=== PATIENT | female | born 1980 | race Caucasian/White ===

== ENCOUNTER 2020-06-30 17:58 | Emergency (ER) | payer OTHER ==
[~2020-06-30] VITALS: Ht 172.7 cm; Wt 58.6 kg
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
[2020-06-30] MEDS ORDERED: IV RINGERS SOLUTION,LACTATED 1,000 ML IV SCH (18:36)
[2020-06-30] MEDS ORDERED: MORPHINE SULFATE 10 MG/ML SYRINGE. SQ ONE (18:45)
[2020-06-30] MEDS ORDERED: PROCHLORPERAZINE 10 MG/2 ML VIAL. IV ONE (18:45)
[2020-06-30] MEDS ORDERED: diphenhydrAMINE 50 MG/ML VIAL IV ONE (18:45)
[2020-06-30 19:25] LABS: BASO # 0.1 x10^3/uL (0.0-0.2); BASO % 1 % (0-3); EOS # 0.1 x10^3/uL (0.0-0.7); EOS % 2 % (0-3); HEMATOCRIT 41.1 % (36.0-47.0); HEMOGLOBIN 13.9 g/dL (12.0-15.5); LYMPH # 2.4 x10^3/uL (1.0-4.8); LYMPH % 41 % (24-48); MEAN CORPUSCULAR HEMOGLOBIN 31 pg (25-35); MEAN CORPUSCULAR HGB CONC 34 g/dL (31-37); MEAN CORPUSCULAR VOLUME 92 fL (79-100); MONO # 0.4 x10^3/uL (0.0-1.1); MONO % 6 % (0-9); NEUT # 2.9 x10^3uL (1.8-7.7); NEUT % 49 % (31-73); PLATELET COUNT 255 x10^3/uL (140-400); RED BLOOD COUNT 4.49 x10^6/uL (3.50-5.40); RED CELL DISTRIBUTION WIDTH 12.5 % (11.5-14.5); WHITE BLOOD COUNT 5.8 x10^3/uL (4.0-11.0)
[2020-06-30 19:30] LABS: BACTERIA,URINE FEW /HPF (0-FEW); BILIRUBIN,URINE NEG (NEG); CLARITY,URINE TURBID; COLOR,URINE YELLOW; GLUCOSE,URINE NEG (NEG); NITRITE,URINE NEG (NEG); RBC,URINE RARE /HPF (0-2); SQUAMOUS EPITHELIAL CELL,UR MOD /LPF; WBC,URINE OCC /HPF (0-4)
[2020-06-30 19:31] LABS: AMORPHOUS SEDIMENT,UR PRESENT /HPF
[2020-06-30 20:11] LABS: AMPHETAMINE/METHAMPHETAMINE NEG (NEG); BARBITURATES NEG (NEG); BENZODIAZEPINES NEG (NEG); CANNABINOIDS NEG (NEG); COCAINE NEG (NEG); METHADONE NEG (NEG); OPIATES NEG (NEG); PHENCYCLIDINE NEG (NEG)
[2020-06-30 20:11] LABS: ANION GAP 10 (6-14); BLOOD UREA NITROGEN 12 mg/dL (7-20); CALCIUM 8.7 mg/dL (8.5-10.1); CARBON DIOXIDE 22 mmol/L (21-32); CHLORIDE 109 mmol/L (98-107); CREATININE 0.7 mg/dL (0.6-1.0); GFR 93.2; GLUCOSE 95 mg/dL (70-99); POTASSIUM 3.9 mmol/L (3.5-5.1); SODIUM 141 mmol/L (136-145)
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
[2020-06-30 20:15] LABS: ALBUMIN 3.5 g/dL (3.4-5.0); ALK PHOS 48 U/L (46-116); ALT (SGPT) 20 U/L (14-59); AST (SGOT) 15 U/L (15-37); DIRECT BILIRUBIN 0.1 mg/dL (0.0-0.2); LIPASE 155 U/L (73-393); MAGNESIUM 1.9 mg/dL (1.8-2.4); TOTAL BILIRUBIN 0.3 mg/dL (0.2-1.0); TOTAL PROTEIN 7.2 g/dL (6.4-8.2)
[2020-06-30] MEDS ORDERED: SUMA100T3 PO (20:41)
[2020-06-30] MEDS ORDERED: ONDA8TAB9 PO (20:41)
[2020-06-30] MEDS ORDERED: SUMAtriptan SUCC 6 MG/0.5 ML VIAL SQ ONE (20:45)
[2020-06-30 20:55] VITALS: BP 117/66
[2020-07-01 12:44] LABS: C REACTIVE PROTEIN < 0.5 mg/L (0-3.3)
== END 2020-06-30 21:15 | disposition home or self-care (01) ==
LOC: ER 17:58
DX: G43.909 Migraine, unspecified, not intractable, without status migrainosus (principal); F43.10 Post-traumatic stress disorder, unspecified; Z88.6 Allergy status to analgesic agent; Z88.1 Allergy status to other antibiotic agents; Z88.8 Allergy status to other drugs, medicaments and biological substances
CPT/HCPCS: 36415; 70450; 70486; 80048; 80076; 80307; 81001; 81025; 83690; 83735; 84443; 85025; 85610; 85730; 86140; 96361; 96372; 96374; 96375; 99285; J0780; J1200; J2270; J3030; J7120; 99284

== ENCOUNTER 2020-08-31 00:32 | Emergency (ER) | payer OTHER ==
[~2020-08-31] VITALS: Ht 175.3 cm; Wt 53.2 kg
[~2020-08-31 00:32] MED LIST: ONDA8TAB9 PO; SUMA100T3 PO
[2020-08-31 00:45] VITALS: BP 98/72
--- NOTE | 2020-08-31 00:54 | PHYS DOC ---
Past History Past Medical History: Migraines, Other Additional Past Medical Histor: PTSD Past Surgical History: Other Additional Past Surgical Histo: RIGHT HIP. LEFT FOOT. LEFT KNEE, HEAD, RIGHT SHOULDER Alcohol Use: None Adult General Chief Complaint Chief Complaint: KNEE INJURY HPI HPI Patient is a 40-year-old female who presents with left knee pain. Onset was suffered less than 30 minutes ago. Patient reports sitting cross ligated on ground while playing video games. She unfolded her legs and attempted to get up from a seated position on the floor when she immediately felt left lateral knee pain and a pop. Nothing known makes better, movement in all directions and direct palpation of left lateral knee make worse. She has been able to put minimal pressure on her left lower extremity due to the pain. She immediately presented via POV to our facility for evaluation. She has not taken anything for the pain. She has no prior knee surgeries. Review of Systems Review of Systems Fourteen body systems of review of systems have been reviewed. See HPI for pertinent positives and negative responses, other lei all other systems are negative, non-pertinent or non-contributory Current Medications Current Medications Current Medications Medications (Trade) Dose Ordered Sig/Brooke Start Time Stop Time Status Last Admin Dose Admin Acetaminophen (Tylenol) 1,000 mg 1X ONCE 08/31/20 01:00 08/31/20 01:01 UNV Allergies Allergies Allergies Coded Allergies Type Severity Reaction Last Updated Verified aspirin Allergy Unknown 06/30/20 Yes cyclobenzaprine Allergy Unknown 06/30/20 Yes ketorolac Allergy Unknown 06/30/20 Yes levofloxacin Allergy Unknown Anaphylaxis 06/30/20 Yes Physical Exam Physical Exam Constitutional: Well developed, well nourished, mild distress, non-toxic appearance. HENT: Normocephalic, atraumatic, bilateral external ears normal, oropharynx moist, no oral exudates, nose normal. Eyes: PERRLA, EOMI, conjunctiva normal, no discharge. Neck: Normal range of motion, no tenderness, supple, no stridor. Cardiovascular: Heart rate regular per monitor Lungs & Thorax: No respiratory distress, bilateral chest rise Abdomen: Soft, nontender Skin: Warm, dry, no erythema, no rash. Back: No tenderness, no CVA tenderness. Extremities: No no cyanosis, no clubbing, no edema. Capillary refill less than 3 seconds of bilateral lower extremities, pulses 2+ bilateral lower extremities, unable to perform complete examination of left knee due to pain, patient cites decreased range of motion in all planes of motion due to pain, palpable pain to left lateral joint line without any obvious abnormalities, patient deferring any other testing such as anterior and posterior Dora, valgus and varus testing etc. Neurologic: Alert and oriented X 3, normal motor & sensory function to bilateral lower extremities, no focal deficits noted. Psychologic: Affect normal, judgement normal, anxious mood Current Patient Data Vital Signs Vital Signs Date Time Temp Pulse Resp B/P (MAP) Pulse Ox O2 Delivery O2 Flow Rate FiO2 08/31/20 00:45 97.6 74 18 98/72 (81) 99 Room Air EKG EKG [] Radiology/Procedures Radiology/Procedures PROCEDURE: KNEE LEFT 4V EXAMINATION: KNEE LEFT 4V CLINICAL HISTORY: Reason: twisting knee injury lateral knee pain / Spl. Instructions: / History: TECHNIQUE: KNEE LEFT 4V Number of Images/Views: 4 COMPARISON: None FINDINGS: Joint spaces and alignment maintained. No acute fracture. No focal soft tissue swelling. IMPRESSION: No acute osseous abnormality. Electronically signed by: Terence Miles DO (08/31/2020 2:10 AM) [facility] Heart Score Risk Factors: Risk Factors: DM, Current or recent (<one month) smoker, HTN, HLP, family history of CAD, obesity. Risk Scores: Risk Factors: DM, Current or recent (<one month) smoker, HTN, HLP, family history of CAD, obesity. Course & Med Decision Making Course & Med Decision Making Pertinent Labs and Imaging studies reviewed. (See chart for details) Attempted to reassess patient's left knee after negative radiograph showing no acute bony abnormality but patient continued to defer due to pain. I discussed most likely diagnosis of sprain versus other soft tissue/ligamentous/meningeal injury. I discussed role of applying brace to left knee with rice protocol and other supportive care measures daily until she can be seen in outpatient setting this upcoming week for repeat examination. I discussed potential role for physical therapy referral versus further work-up as indicated by PCP. Strict return precautions were discussed with good understanding by patient, all questions and concerns addressed prior to ER departure in stable condition Florian Disclaimer Dragon Disclaimer This electronic medical record was generated, in whole or in part, using a voice recognition dictation system. Departure Departure: Impression: Primary Impression: Injury of left knee Additional Impression: Left lateral knee pain Disposition: 01 DC HOME SELF CARE/HOMELESS Condition: STABLE Referrals: PCP,NO (PCP) Patient Instructions: Knee Pain, RICE - Routine Care for Injuries Problem Qualifiers NICANOR VEE DO Aug 31, 2020 00:54
[2020-08-31] MEDS ORDERED: ACETAMINOPHEN 500 MG TABLET PO ONE (01:30)
--- NOTE | 2020-08-31 02:13 | RAD ---
EXAMINATION: KNEE LEFT 4V CLINICAL HISTORY: Reason: twisting knee injury lateral knee pain / Spl. Instructions: / History: TECHNIQUE: KNEE LEFT 4V Number of Images/Views: 4 COMPARISON: None FINDINGS: Joint spaces and alignment maintained. No acute fracture. No focal soft tissue swelling. IMPRESSION: No acute osseous abnormality. Electronically signed by: Terence Miles DO (08/31/2020 2:10 AM) [facility]
== END 2020-08-31 02:30 | disposition home or self-care (01) ==
LOC: ER 00:32
DX: S89.92XA Unspecified injury of left lower leg, initial encounter (principal); G43.909 Migraine, unspecified, not intractable, without status migrainosus; F43.10 Post-traumatic stress disorder, unspecified; Z88.6 Allergy status to analgesic agent; Z88.1 Allergy status to other antibiotic agents; Z88.8 Allergy status to other drugs, medicaments and biological substances; X50.9XXA Other and unspecified overexertion or strenuous movements or postures, initial encounter; Y93.89 Activity, other specified; Y92.89 Other specified places as the place of occurrence of the external cause; Y99.8 Other external cause status
CPT/HCPCS: 29505; 73564; 99283

== ENCOUNTER 2020-09-07 13:26 | Emergency (ER) | payer OTHER ==
[~2020-09-07] VITALS: Ht 175.3 cm; Wt 53.2 kg
[2020-09-07 13:29] VITALS: BP 117/84
--- NOTE | 2020-09-07 14:04 | PHYS DOC ---
Past History Past Medical History: No Pertinent History, Migraines, Other Additional Past Medical Histor: PTSD Past Surgical History: Other Additional Past Surgical Histo: RIGHT HIP. LEFT FOOT. LEFT KNEE, HEAD, RIGHT SHOULDER Alcohol Use: None Adult General Chief Complaint Chief Complaint: LOWER EXT PAIN [facility] HPI Patient is a 40-year-old female who presents for suspect blood clot. She has history of unprovoked blood clot that started in left foot and progressed into left calf. She was seen and managed in outpatient setting in February 2020 and was subsequently on 8 weeks of anticoagulation with Eliquis. She had extensive work-up performed in outpatient setting that was grossly unremarkable. Nonetheless, she was recently seen at this facility by myself and was ultimately found and diagnosed with a torn meniscus after outpatient MRI, she is pending outpatient surgery for this. She reports noticing not under sole of the left big toe similar nature to prior blood clot that migrated up to calf. She is concerned and wanting to catch this early. Denies any warmth but admits that it is tender to the touch. Review of Systems Review of Systems Fourteen body systems of review of systems have been reviewed. See HPI for pertinent positives and negative responses, other lei all other systems are negative, non-pertinent or non-contributory Allergies Allergies Allergies Coded Allergies Type Severity Reaction Last Updated Verified aspirin Allergy Unknown 06/30/20 Yes cyclobenzaprine Allergy Unknown 06/30/20 Yes ketorolac Allergy Unknown 06/30/20 Yes levofloxacin Allergy Unknown Anaphylaxis 06/30/20 Yes Physical Exam Physical Exam Constitutional: Well developed, well nourished, no acute distress, non-toxic appearance. HENT: Normocephalic, atraumatic, bilateral external ears normal, oropharynx moist, no oral exudates, nose normal. Eyes: PERRLA, EOMI, conjunctiva normal, no discharge. Neck: Normal range of motion, no tenderness, supple, no stridor. Cardiovascular: Heart rate regular per monitor Lungs & Thorax: No respiratory distress, bilateral chest rise Abdomen: Soft, nontender Skin: Warm, dry, no erythema, no rash. Back: No tenderness, no CVA tenderness. Extremities: No tenderness, no cyanosis, no clubbing, no edema. Knee immobilizer present on left lower extremity. Bilateral pulses 2+. Palpable nodule underneath DIP of left big toe that is tender to palpation, nonerythematous, nonmobile, not warm to the touch, no streaking. Negative Homans' sign bilaterally, lower extremity circumferences equal bilaterally Neurologic: Alert and oriented X 3, grossly normal motor & sensory function, no focal deficits noted. Psychologic: Affect normal, judgement normal, mood normal. Current Patient Data Vital Signs Vital Signs Date Time Temp Pulse Resp B/P (MAP) Pulse Ox O2 Delivery O2 Flow Rate FiO2 09/07/20 13:29 97.9 99 16 117/84 (95) 98 Room Air EKG EKG [] Radiology/Procedures Radiology/Procedures [] Heart Score Risk Factors: Risk Factors: DM, Current or recent (<one month) smoker, HTN, HLP, family history of CAD, obesity. Risk Scores: Risk Factors: DM, Current or recent (<one month) smoker, HTN, HLP, family history of CAD, obesity. Course & Med Decision Making Course & Med Decision Making ABCs unremarkable Discussed likely diagnosis of ganglioma versus superficial thrombosis. I discussed little role for further ER intervention/work-up. I advised patient to utilize NSAIDs for local pain and anti-inflammatory purposes and to apply heating pad daily. Patient has follow-up with primary care physician tomorrow to follow-up on her left torn meniscus, I advised her to discuss following this concerning nodule in outpatient setting as there might be indication for DVT eventually if this progresses up into calf area. Strict return precautions were discussed with good understanding by patient, all questions and concerns addressed prior to ER departure in stable condition Dragon Disclaimer Dragon Disclaimer This electronic medical record was generated, in whole or in part, using a voice recognition dictation system. Departure Departure: Impression: Primary Impression: Left foot pain Disposition: 01 DC HOME SELF CARE/HOMELESS Condition: STABLE Referrals: PCP,UNKNOWN (PCP) Additional Instructions: As discussed prior to ER departure, please ensure you keep follow-up with your primary care physician tomorrow Please follow-up on torn left meniscus in addition to complication of left big toe today As discussed, there is no indication for further diagnostic work-up in ER setting, there is no indication for anticoagulation at this time. Continue good supportive care consisting of 800 mg ibuprofen 3 times daily with food and heating pad with daily monitoring of area. This might be an acute presentation more concerning pathology inside, it is vital you continue to monitor this area daily in addition to discussing it with your primary care physician. If any concerning signs or symptoms present prior to your outpatient follow-up tomorrow please do not hesitate to come back for repeat evaluation. Is a pleasure to take care of you and I wish you the best going forward NICANOR VEE DO Sep 07, 2020 14:04
== END 2020-09-07 14:09 | disposition home or self-care (01) ==
LOC: ER 13:26
DX: M79.672 Pain in left foot (principal); G43.909 Migraine, unspecified, not intractable, without status migrainosus; Z98.890 Other specified postprocedural states; Z88.1 Allergy status to other antibiotic agents; Z88.8 Allergy status to other drugs, medicaments and biological substances
CPT/HCPCS: 99282